=== PATIENT | female | born 1955 | race Caucasian/White ===

== ENCOUNTER → 2018-05-08 | Outpatient (CLI) | payer BC ==
--- NOTE | 2018-05-09 11:59 | MM ---
Reason for exam: screening (asymptomatic). Last mammogram was performed 3 years and 5 months ago. History: Patient is postmenopausal. Physical Findings: A clinical breast exam by your physician is recommended on an annual basis and results should be correlated with mammographic findings. MG 3D Screening Mammo W/Cad Bilateral CC and MLO view(s) were taken. Prior study comparison: November 28, 2014, bilateral MG screening mammo w CAD. April 18, 2002, bilateral special view mammogram. The breast tissue is heterogeneously dense. This may lower the sensitivity of mammography. Finding: There is a 10 mm circumscribed round mass in the posterior position of the left breast on MLO 57/69. There is a chronic nodularity in the left breast anteriorly that is unchanged. New finding since November 28, 2014. ASSESSMENT: Incomplete: need additional imaging evaluation, BI-RAD 0 RECOMMENDATION: Special view mammogram and ultrasound of the left breast. [facility] will attempt to contact patient to return for supplemental views and ultrasound.
== END | disposition home or self-care (01) ==
LOC: RADMAMWWP 09:08
PROVIDERS: ATTEND Family Medicine
DX: Z12.31 Encounter for screening mammogram for malignant neoplasm of breast (principal)
CPT/HCPCS: 77063; 77067

== ENCOUNTER → 2018-05-15 | Outpatient (CLI) | payer BC, OTHER ==
--- NOTE | 2018-05-15 12:48 | US ---
EXAMINATION TYPE: US thyroid st tissue head/neck DATE OF EXAM: 05/15/2018 COMPARISON: 12/15/2014 CLINICAL HISTORY: E05.90 hyperthyroidism. Hyperthyroidism, not currently on meds, no hx of thyroid bx GLAND SIZE: Right Lobe: 5.7 x 2.8 x 3.1 cm Overall Parenchyma: heterogenous Left Lobe: 4.8 x 2.8 x 2.1 cm Overall Parenchyma: heterogeneous Isthmus Thickness: 1.0 cm NODULES- multiple seen bilaterally, largest measured RIGHT: # of nodules measured on right: 2 1. 2.6 X 2.2 x 2.0 cm mixed nodule at the mid pole with well-defined margins. This nodule is wider than tall and shows intranodular vascularity. Prior size: No previous 2. 2.6 X 1.8 x 2.2 cm mixed nodule at the posterior mid pole with well-defined margins. This nodule is taller than wide and shows intranodular vascularity. Prior size: No previous LEFT: # of nodules measured on left: 2 1. 2.6 X 1.7 x 2.4 cm mixed nodule at the mid pole with well-defined margins. This nodule is talle r than wide and shows intranodular vascularity. Prior size: No prior 2. 1.5 X 1.0 x 1.2 cm mixed nodule at the medial mid pole with well-defined margins. This nodule is taller than wide and shows intranodular vascularity. Prior size: No prior ISTHMUS: # of nodules measured in the isthmus: 1 1. 1.2 X 1.6 x 1.2 cm solid nodule at the lower pole with well-defined margins. This nodule is wid er than tall and shows intranodular vascularity. Prior size: No previous Bilateral neck scanned, no evidence of lymphadenopathy. IMPRESSION: Thyromegaly with findings suggestive of thyroiditis. There are multiple greater than 1 cm bilateral t hyroid nodules which were not clearly seen on the prior exam as measured above.
== END | disposition home or self-care (01) ==
LOC: RADUSWWP 11:53
PROVIDERS: ATTEND Family Medicine
DX: E04.2 Nontoxic multinodular goiter (principal)
CPT/HCPCS: 76536

== ENCOUNTER → 2018-05-22 | Outpatient (CLI) | payer BC ==
--- NOTE | 2018-05-22 10:43 | MM ---
Reason for exam: additional evaluation requested from abnormal screening. Last mammogram was performed less than 1 month ago. History: Patient is postmenopausal. Physical Findings: Nurse Summary: 1cm and 1.5cm nodule in the left breast at 11 o'clock and 5 o'clock (nurse mj). MG 3D Work Up W/Cad LT Spot compression CC, spot compression MLO, spot compression XCCM, and LM view(s) were taken of the left breast. Prior study comparison: May 08, 2018, bilateral MG 3d screening mammo w/cad. November 28, 2014, bilateral MG screening mammo w CAD. Finding: There is a 10 mm equal density (isodense), oval mass in the left breast. These results were verbally communicated with the patient and result sheet given to the patient on 05/22/18. ASSESSMENT: Incomplete: need additional imaging evaluation, BI-RAD 0 RECOMMENDATION: Ultrasound of the left breast.
--- NOTE | 2018-05-22 10:46 | USB ---
Reason for exam: additional evaluation requested from abnormal screening. History: Patient is postmenopausal. US Breast Workup Limited LT Left limited breast ultrasound including focal area of concern, retroareolar and axilla demonstrates a 1.1 x 0.8 x 1.1cm oval, mixed lesion at 11 o'clock and a 2.1 x 1.2 x 1.8cm oval, cystic lesion at 4 o'clock. These results were verbally communicated with the patient and result sheet given to the patient on 05/22/18. ASSESSMENT: Suspicious, BI-RAD 4 RECOMMENDATION: Aspiration of the left breast. Called Dr. Zurita with mammographic findings. Aspiration scheduled for 05/31/18 at 1:00. PRELIMINARY REPORT CALLED AND FAXED TO DR. ZURITA ON 05/22/18.
== END | disposition home or self-care (01) ==
LOC: RADMAMWWP 08:49
PROVIDERS: ATTEND Family Medicine
DX: R92.8 Other abnormal and inconclusive findings on diagnostic imaging of breast (principal)
CPT/HCPCS: 77061; 77065

== ENCOUNTER 2018-06-27 08:27 | Day surgery (SDC) | payer BC ==
[2018-06-25 09:32] VITALS: BMI 26.6
[~2018-06-27 08:27] MED LIST: LACTATED RINGERS 1,000 ML IV SCH; LIDOCAINE 1% 20 ML VIAL (10MG/ML) FOR IV START INTRADERMA PRN
[2018-06-27 09:08] VITALS: TEMP 98.2
[2018-06-27] MEDS ORDERED: PROPOFOL 10 MG/ML 20 ML VIAL IV ONE (09:59)
--- NOTE | 2018-06-27 10:22 | P.PCN ---
Date of Procedure: 06/27/18 Procedure(s) Performed: BRIEF HISTORY: Patient is a 63-year-old pleasant female, scheduled for an elective colonoscopy as a part of screening for colon neoplasia. PROCEDURE PERFORMED: Colonoscopy with snare polypectomy. PREOPERATIVE DIAGNOSIS: Screening for colon cancer. IV sedation per Anesthesia. PROCEDURE: After informed consent was obtained, the patient, was brought into the endoscopy unit. IV sedation was administered by Anesthesia under continuous monitoring. Digital rectal examination was normal. Initially the Olympus CF-160 flexible video colonoscope was then inserted in the rectum, gradually advanced into the cecum without any difficulty. Careful examination was performed as the scope was gradually being withdrawn. Ileocecal valve and the appendiceal orifice were visualized and appeared normal. Prep was excellent. Mucosa of the cecum appeared normal. In the ascending colon there was a 7-8 mm sessile polyp removed by snare polypectomy. Rest of the ascending colon, transverse colon, descending colon, appeared normal. In the proximal sigmoid colon there was a 2 cm broad-based polyp removed by snare polypectomy. In the rectosigmoid colon there was a 2 cm pedunculated polyp removed by snare polypectomy. Rest of the sigmoid colon, and rectum appeared normal. Retroflexion was performed in the rectum and no lesions were seen. The patient tolerated the procedure well. IMPRESSION: 7-8 mm sessile ascending colon polyp status post snare polypectomy 2 cm broad-based proximal sigmoid colon polyp serous was snare polypectomy 2 cm pedunculated rectosigmoid polyp status post polypectomy RECOMMENDATIONS: Findings of this examination were discussed with the patient as well as a family she was advised to follow with the biopsy results. If the biopsy shows adenoma, she can have a repeat colonoscopy in 3..
[2018-06-27 10:29] VITALS: RESP 18
[2018-06-27 10:47] VITALS: BP 158/89; PULSE 78
== END 2018-06-27 10:56 | disposition home or self-care (01) ==
LOC: ORWHC2ENDO 08:27
PROVIDERS: ATTEND Internal Medicine Gastroenterology
DX: Z12.11 Encounter for screening for malignant neoplasm of colon (principal); D12.7 Benign neoplasm of rectosigmoid junction; D12.2 Benign neoplasm of ascending colon; D12.5 Benign neoplasm of sigmoid colon; E05.90 Thyrotoxicosis, unspecified without thyrotoxic crisis or storm; Z88.5 Allergy status to narcotic agent; Z88.8 Allergy status to other drugs, medicaments and biological substances; Z79.899 Other long term (current) drug therapy
CPT/HCPCS: 45385; 88305

== ENCOUNTER → 2018-07-02 | Day surgery (SDC) | payer BC ==
[2018-07-02 12:02] VITALS: BP 178/91; PULSE 92; RESP 16; TEMP 97.8; BMI 26.6
--- NOTE | 2018-07-02 13:42 | USB ---
EXAMINATION TYPE: US discontinued breast asp LT DATE OF EXAM: 07/02/2018 CLINICAL HISTORY: 63-year-old female R92.8 ABNORMAL MAMMOGRAM. COMPARISON: 05/22/2018 FINDINGS: Imaging was reviewed. The intended aspiration target is an 11:00 peripherally located 1.1 cm palpable lesion. This appears cystic with internal debris, posterior through transmission, and partial involv ement of the dermis highly suggestive of a sebaceous cyst especially given fact the patient reports t hat this has been present for the last 5 years and the presence of occasional purulent discharge from this area. Findings were discussed with the patient. Exam is canceled at this time. Dermatology consult will be recommended for potential excision of the sebaceous cyst. Six-month follow-up can be performed as a p recautionary measure. IMPRESSION: 1. BI-RADS 3-probably benign RECOMMENDATION: 1. Dermatology consult for findings highly suggestive of a 1.1 cm sebaceous cyst at the peripheral 11 :00 position of the left breast. Excision can be considered. Aspiration is canceled at this time. 2. Six-month follow-up left breast ultrasound can be performed as a precautionary measure. 3. Patient should continue monthly self breast exam. 4. This exam should not preclude additional follow-up of suspicious palpable abnormalities.
== END ==
LOC: RADUSWWP 11:13
PROVIDERS: ATTEND Family Medicine
DX: R92.8 Other abnormal and inconclusive findings on diagnostic imaging of breast (principal)

== ENCOUNTER 2018-08-16 09:16 | Day surgery (SDC) | payer BC ==
[2018-08-16 09:44] VITALS: TEMP 98.4
[2018-08-16 13:11] VITALS: BP 154/68; PULSE 84
--- NOTE | 2018-08-16 16:51 | US ---
EXAMINATION TYPE: US FNA thyroid first lesion, US FNA each additional lesion, US FNA each additional lesion DATE OF EXAM: 08/16/2018 COMPARISON: Ultrasound thyroid 05/15/2018 HISTORY: Thyroid nodules. Maximal barrier technique was utilized. After informed consent, skin over lying the right lobe of thyroid dominant nodule was localized with ultrasound and the overlying skin prepped and draped. Ultrasound was utilized using sterile technique. Lidocaine was used for local ane sthesia. Five passes with a 25-gauge needle were made into the nodule and aspirated specimen was sub mitted to cytology. Using similar technique the dominant nodule in the left lobe was sampled. Finally , the dominant nodule in the right side of the isthmus was sampled using similar technique. Following the procedure hemostasis achieved. No immediate complication. The patient discharged in stable con dition. IMPRESSION: STATUS POST ULTRASOUND GUIDED FINE NEEDLE ASPIRATION OF 3 DISCRETE THYROID NODULES, PATHO LOGY IS PENDING. THIS PROCEDURE WAS PERFORMED BY THE UNDERSIGNED.
== END 2018-08-16 12:30 | disposition home or self-care (01) ==
LOC: RADPROMAIN 09:16
PROVIDERS: ATTEND Family Medicine
DX: E04.2 Nontoxic multinodular goiter (principal)
CPT/HCPCS: 10005; 10006; 88173; 88305

== ENCOUNTER → 2019-03-08 | Outpatient (CLI) | payer BC ==
--- NOTE | 2019-03-08 17:36 | CT ---
EXAMINATION TYPE: CT iac w con DATE OF EXAM: 03/08/2019 COMPARISON: None HISTORY: Rt sided hearing loss CT DLP: 150 mGycm Automated exposure control for dose reduction was used. CONTRAST: CT scan of the IACs is performed with IV Contrast, patient injected with 100 mL of Isovue 300. FINDINGS: The external auditory canals are patent bilaterally. Mastoid air cells show no evidence of abnormal opacification bilaterally. The middle ear ossicles are symmetric and unremarkable. There is no evidence of suspicious surrounding soft tissue density. The scutum are preserved bilaterally. The cochlea and the semicircular canals are symmetric and unremarkable. Vestibular aqueduct and int ernal carotid canal appear unremarkable. Temporomandibular joints are maintained bilaterally. There is a high riding right jugular bulb. This is a normal variant. Note is made of some mucosal thi ckening within the left posterior ethmoid air cells. IMPRESSION: 1. Normal bilateral internal auditory canal study.
== END | disposition home or self-care (01) ==
LOC: RADCTMAIN 09:23
PROVIDERS: ATTEND Otolaryngology
DX: H91.90 Unspecified hearing loss, unspecified ear (principal)
CPT/HCPCS: 70481; Q9967

== ENCOUNTER → 2019-03-20 | Outpatient (CLI) | payer BC ==
--- NOTE | 2019-04-11 13:00 | ECHOF ---
Referral Reason:I10 hypertension MEASUREMENTS -------- HEIGHT: 170.2 cm WEIGHT: 77.1 kg BP: RVIDd: 3.7 cm (< 3.3) IVSd: 1.3 cm (0.6 - 1.1) LVIDd: 3.8 cm (3.9 - 5.3) LVPWd: 1.4 cm (0.6 - 1.1) IVSs: 1.3 cm LVIDs: 3.3 cm LVPWs: 1.3 cm LA Diam: 3.5 cm (2.7 - 3.8) LAESV Index (A-L): 25.22 ml/m Ao Diam: 2.8 cm (2.0 - 3.7) AV Cusp: 1.9 cm (1.5 - 2.6) MV EXCURSION: 19.089 mm (> 18.000) MV EF SLOPE: 110 mm/s (70 - 150) EPSS: 0.8 cm MV E Alex: 0.51 m/s MV DecT: 223 ms MV A Alex: 0.85 m/s MV E/A Ratio: 0.60 RAP: 5.00 mmHg RVSP: 18.96 mmHg FINDINGS -------- Sinus rhythm. This was a technically good study. The left ventricular size is normal. There is mild concentric left ventricular hypertrophy. Overa ll left ventricular systolic function is normal with, an EF between 55 - 60 %. The right ventricle is normal in size. The left atrial size is normal. Normal LA size by volume 22+/-6 ml/m2. The right atrial size is normal. There is mild aortic valve sclerosis. There is no evidence of aortic regurgitation. Mild mitral annular calcification present. Mild mitral regurgitation is present. Mild tricuspid regurgitation present. Right ventricular systolic pressure is normal at < 35 mmHg. There is no evidence of pulmonary hypertension. There is no pulmonic regurgitation present. The aortic root size is normal. There is no pericardial effusion. CONCLUSIONS -------- 1. Sinus rhythm. 2. This was a technically good study. 3. The left ventricular size is normal. 4. There is mild concentric left ventricular hypertrophy. 5. Overall left ventricular systolic function is normal with, an EF between 55 - 60 %. 6. The right ventricle is normal in size. 7. The left atrial size is normal. 8. Normal LA size by volume 22+/-6 ml/m2. 9. The right atrial size is normal. 10. There is mild aortic valve sclerosis. 11. Mild mitral annular calcification present. 12. Mild mitral regurgitation is present. 13. Mild tricuspid regurgitation present. 14. Right ventricular systolic pressure is normal at < 35 mmHg. 15. There is no evidence of pulmonary hypertension. 16. There is no pulmonic regurgitation present. 17. The aortic root size is normal. 18. There is no pericardial effusion. OCCUPATIONAL THERAPY SPECIALIST: Mariel Watkins RDCS
== END ==
LOC: RADECHMAIN 14:36
PROVIDERS: ATTEND Family Medicine
DX: I10 Essential (primary) hypertension (principal)
CPT/HCPCS: 93306

== ENCOUNTER → 2020-07-29 | Outpatient (CLI) | payer BC ==
--- NOTE | 2020-08-05 10:00 | MM ---
Reason for exam: screening (asymptomatic). Last mammogram was performed 2 years and 2 months ago. History: Patient is postmenopausal. Physical Findings: A clinical breast exam by your physician is recommended on an annual basis and results should be correlated with mammographic findings. MG 3D Screening Mammo W/Cad Bilateral CC and MLO view(s) were taken. Prior study comparison: May 22, 2018, left breast MG 3d work up w/cad LT. May 08, 2018, bilateral MG 3d screening mammo w/cad. The breast tissue is almost entirely fat. Finding: There is a typically benign high density, circumscribed round mass in the middle position of the left breast. There is a chronic nodularity in the left breast. No significant changes in finding since May 22, 2018 and May 08, 2018. ASSESSMENT: Benign, BI-RAD 2 RECOMMENDATION: Routine screening mammogram of both breasts in 1 year. Manage on a clinical basis with regard to enlarging skin lesion medial left breast chest wall.
== END | disposition home or self-care (01) ==
LOC: RADMAMWWP 12:52
PROVIDERS: ATTEND Family Medicine
DX: Z12.31 Encounter for screening mammogram for malignant neoplasm of breast (principal); Z78.0 Asymptomatic menopausal state
CPT/HCPCS: 77063; 77067

== ENCOUNTER → 2022-08-08 | Outpatient (CLI) | payer MEDICARE ==
--- NOTE | 2022-08-09 08:42 | MM ---
Reason for Exam: Screening (asymptomatic). Last mammogram was performed 2 year(s) and 0 month(s) ago. Patient History: Menarche at age 13. First Full-Term at age 21. Postmenopausal. Risk Values: Brandy 5 year model risk: 1.5%. NCI Lifetime model risk: 5.4%. Prior Study Comparison: 05/08/2018 Bilateral Screening Mammogram, [facility]. 05/22/2018 Left Diagnostic Mammogram, [facility]. 07/29/2020 Bilateral Screening Mammogram, [facility]. Tissue Density: There are scattered fibroglandular densities. Findings: Analyzed By CAD. Chronic nodularity left breast. There is no suspicious group of microcalcifications or new suspicious mass in either breast. Overall Assessment: Benign, BI-RAD 2 Management: Screening Mammogram of both breasts in 1 year. . Patient should continue monthly self-breast exams. A clinical breast exam by your physician is recommended on an annual basis. This exam should not preclude additional follow-up of suspicious palpable abnormalities. Note on Brandy scores and lifetime risk: 1. A Brandy score greater than 3% is considered moderate risk. If this is the case, consider specialist referral to assess eligibility for a risk reducing agent. 2. If overall lifetime risk for the development of breast cancer is 20% or higher, the patient may qualify for future screening with alternating mammogram and breast MRI. Electronically signed and approved by: Katya Singer M.D. Radiologist
== END | disposition home or self-care (01) ==
LOC: RADMAMWWP 14:13
PROVIDERS: ATTEND Family Medicine
DX: Z12.31 Encounter for screening mammogram for malignant neoplasm of breast (principal); Z78.0 Asymptomatic menopausal state
CPT/HCPCS: 77063; 77067

== ENCOUNTER → 2023-08-07 | Outpatient (CLI) | payer MEDICARE | END | disposition home or self-care (01) | LOC: RADMAMWWP 10:44 | PROVIDERS: ATTEND Family Medicine | DX: Z53.9 Procedure and treatment not carried out, unspecified reason (principal) ==

== ENCOUNTER → 2024-08-26 | Outpatient (CLI) | payer MEDICARE ==
--- NOTE | 2024-08-26 09:47 | MM ---
Reason for Exam: Screening (asymptomatic). Last mammogram was performed 1 year(s) and 1 month(s) ago. Patient History: Menarche at age 13. First Full-Term at age 21. Postmenopausal. Risk Values: Brandy 5 year model risk: 1.5%. NCI Lifetime model risk: 5.0%. Prior Study Comparison: 07/29/2020 Bilateral Screening Mammogram, [facility]. 08/08/2022 Bilateral MG 3D screening mammo w/cad, [facility]. 08/11/2023 Bilateral MG 3D screening mammo w/cad, [facility]. Tissue Density: There are scattered areas of fibroglandular density. Findings: Analyzed By CAD. A 10 mm round circumscribed mass in the left breast is redemonstrated There is increasing group of indistinct calcifications in the middle depth of the left breast. Overall Assessment: Incomplete: need additional imaging evaluation, BI-RAD 0 Management: Diagnostic Mammogram of the left breast. Return for additional spot magnification and 3-D true lateral views left breast. Patient should continue monthly self-breast exams. A clinical breast exam by your physician is recommended on an annual basis. This exam should not preclude additional follow-up of suspicious palpable abnormalities. Note on Brandy scores and lifetime risk: 1. A Brandy score greater than 3% is considered moderate risk. If this is the case, consider specialist referral to assess eligibility for a risk reducing agent. 2. If overall lifetime risk for the development of breast cancer is 20% or higher, the patient may qualify for future screening with alternating mammogram and breast MRI. [facility], , 08/26/2024 9:44 AM. Electronically signed and approved by: Rigoberto Collins M.D.
== END | disposition home or self-care (01) ==
LOC: RADMAMWWP 08:52
PROVIDERS: ATTEND Family Medicine
DX: Z12.31 Encounter for screening mammogram for malignant neoplasm of breast (principal); R92.323 Mammographic fibroglandular density, bilateral breasts; Z78.0 Asymptomatic menopausal state
CPT/HCPCS: 77063; 77067

== ENCOUNTER → 2024-08-29 | Outpatient (CLI) | payer MEDICARE ==
--- NOTE | 2024-08-29 11:02 | MM ---
Reason for Exam: Additional evaluation requested from abnormal screening. Last screening mammogram was performed less than 1 month ago. Patient History: Menarche at age 13. First Full-Term at age 21. Postmenopausal. Risk Values: Brandy 5 year model risk: 1.5%. NCI Lifetime model risk: 5.0%. Prior Study Comparison: 08/08/2022 Bilateral MG 3D screening mammo w/cad, [facility]. 08/11/2023 Bilateral MG 3D screening mammo w/cad, [facility]. 08/26/2024 Bilateral MG 3D screening mammo w/cad, [facility]. Tissue Density: Left: There are scattered areas of fibroglandular density. Findings: Analyzed By CAD. Persistent heterogeneous group of calcifications in middle depth central slightly upper aspect on additional views. Overall Assessment: Suspicious, BI-RAD 4 Management: Stereotactic Core Biopsy of the left breast. . Results were given to the patient verbally at the time of exam. Patient should continue monthly self-breast exams. A clinical breast exam by your physician is recommended on an annual basis. This exam should not preclude additional follow-up of suspicious palpable abnormalities. Note on Brandy scores and lifetime risk: 1. A Brandy score greater than 3% is considered moderate risk. If this is the case, consider specialist referral to assess eligibility for a risk reducing agent. 2. If overall lifetime risk for the development of breast cancer is 20% or higher, the patient may qualify for future screening with alternating mammogram and breast MRI. [facility], , 08/29/2024 10:59 AM. Electronically signed and approved by: Rigoberto Collins M.D.
== END | disposition home or self-care (01) ==
LOC: RADMAMWWP 10:16
PROVIDERS: ATTEND Family Medicine
DX: R92.8 Other abnormal and inconclusive findings on diagnostic imaging of breast (principal); R92.322 Mammographic fibroglandular density, left breast; Z78.0 Asymptomatic menopausal state
CPT/HCPCS: 77061; 77065

== ENCOUNTER → 2024-09-05 | Day surgery (SDC) | payer MEDICARE ==
--- NOTE | 2024-09-23 14:27 | MM ---
Risk Values: Brandy 5 year model risk: 1.5%. NCI Lifetime model risk: 5.0%. Prior Study Comparison: 08/11/2023 Bilateral MG 3D screening mammo w/cad, [facility]. 08/26/2024 Bilateral MG 3D screening mammo w/cad, [facility]. 08/29/2024 Left MG 3D work up w/cad LT, [facility]. Pathology Description: Marker Left Behind. Specimen Radiograph. Calcium Found: Yes Approach: CC FA Needle Type: Eviva Cores: 12 Skin Nicks: 1 Gauge: 9 The procedure of stereotactic guided core biopsy was explained to the patient. Benefits, alternatives, and risks were discussed. An informed consent was then obtained. The shortness pathway for biopsy was chosen. Shortness pathway was superior approach. A vacuum assisted biopsy gun was used to obtain multiple core samples. The patient tolerated the procedure well without any immediate complication. The patient was kept in the radiology department for short stay after the procedure and then discharged home in stable condition. Targeted calcifications are identified in specimen mammogram. Patient was taken to a dedicated mammography suite for post procedure clip placement verification.Post biopsy mammogram shows the clip to appear in satisfactory position relative to the targeted area of concern on the preprocedure images. Impression: SUCCESSFUL, UNCOMPLICATED STEREOTACTIC GUIDED CORE BIOPSY OF AREA OF CONCERN IN THE left BREAST. PATHOLOGY STATUS: Results pending [facility], , 09/05/2024 11:15 AM. Pathology Results: Result: Benign, Fibrocystic change. Pathology and radiology were reviewed. Findings are concordant. LEFT BREAST, NEEDLE CORE BIOPSY: Benign breast with fibrocystic changes including focal fibroadenomatoid hyperplasia with calcifications. Overall Assessment: Benign Management: Diagnostic Mammogram of the left breast in 6 months. Electronically signed and approved by: Pedro Hood M.D. Radiologis
== END ==
LOC: RADMAMWWP 09:37
PROVIDERS: ATTEND Family Medicine
DX: N60.12 Diffuse cystic mastopathy of left breast (principal)
CPT/HCPCS: 88305